=== PATIENT | female | born 2005 | race Caucasian/White ===

== ENCOUNTER 2025-05-07 08:00 | Outpatient (RCR) | payer BC, MEDICAID, OTHER, SELFPAY | END 2025-09-08 23:59 | disposition home or self-care (01) | LOC: CCIC 08:00 | PROVIDERS: PCP Internal Medicine; Referring Provider Internal Medicine; Visit Provider Clinical Nurse Specialist | DX: D80.2 Selective deficiency of immunoglobulin A [IgA] (principal) | CPT/HCPCS: 99211 ==

== ENCOUNTER 2025-07-25 15:24 | Emergency (ER) | payer BC, OTHER, MEDICAID, SELFPAY ==
--- OUTSIDE RECORDS SUMMARY | 2012-07-21 03:00 | XMS_ITS | Continuity of Care Document ---
Author Organization [facility] Address [address] [address] [place] [address] Phone Care Team Providers Care Director Of Partner Marketing Name Role Phone Jeff KHAN, Bill Unavailable Unavaila ble Allergies, Adverse Reactions, Alerts Substance Reaction Status Criticality cefdinir Hives Active No Information WARNIN allergy(ies) could not be collected because the type is not supported. Please contact the source practice for further details. Medications Medication Instructions Dosage Effective Dates (start - stop) Status Comments Keppra 100 mg/mL Oral Soln take 7 milliliter (700MG) by oral route 2 times every day 700 MG - Active TRAZODONE HCL (unknown strength) 10mg/ml-Take 4ml by oral route once daily at HS Not Available - Active melatonin 5 mg/15 mL Oral Liquid Take 6mg by oral route once daily - Active Milk of Magnesia 400 mg/5 mL Oral Susp take 10 - 15 milliliter by oral route every day 10-15 milliliter - Active Vitamin B-6 25 mg tablet Take 1 capsule by oral route once daily - Active cetirizine 1 mg/mL Oral Soln take 2 teaspoon (2MG) by oral route every night 2 MG - Active ferrous sulfate 220 mg (44 mg iron)/5 mL Oral Soln take 6.8 milliliter (299.2MG) by oral route 3 times every day 299.2 MG - Active Procedures Procedure Date Offic Cons New/estab Mod G8447 Advance Directives Directive Yes / No Effective Date File Name Resuscitation Not Answered N/A N/A Life Support Not Answered N/A N/A Intubation Not Answered N/A N/A Antibiotics Not Answered N/A N/A IV Fluid Support Not Answered N/A N/A Tube Feed Not Answered N/A N/A Other Directive N/A N/A WARNING:The information contained in this section is historical and is provided for information only and does not constitute a legal document or any assurance that the information is still accurate. Please verify the information with the sahni of the legal document before using it for clinical purposes. Encounters Encounter Description Practice Location Reason(s) For Visit Diagnoses Date Provider Providers Copied on Encounter Offic Cons New/estab Mod [facility] [address] [address], [place], [place], [id number], [place] tel:[phone] [facility] Constipation (chief complaint) Constipation UnspecifiedFecal Incontinence, Full 2 Jeff jones [address] [facility], [place], [place], [id number] , [place]. tel:[phone] Referring Provider: Jenifer Bone MD, [address] [place], [address]. tel:[phone] Family History Family Member Type Diagnosis Age At Onset First degree family history Problem (finding) No histo ry of Crohn's Maternal grandmother Problem (finding) Maternal history of diabetes mellitus First degree family history Problem (finding) No Family history of No history of Colon Polyps Maternal grandmother Problem (finding) GERD First degree family history Problem (finding) No history of Ulcerative Colitis Maternal grandmother Problem (finding) Thyroid disorde r First degree family history Problem (finding) No history of Colon Rectal Cancer Payers Payer name Insurance type Covered republican ID Authoriza tion(s) No Information Social History Type Description Quantity Date Captured Comments Alcohol Use Details Unknown Caffeine Use Details Unknown Tobacco Use Status No Information Smoking Status No Information Sex Female Chief Complaint And Reason For Visit From encounter dated '07/21/2012 08:00'. Constipation (chief complaint) Reason For Referral Reason For Referral No Information History Of Present Illness Encounter Date Complaint History Of Prese nt Illness No Information Functional Status Date Functional Assessmen t No Information Instructions Date Instruction Additional Infor mation No Information Assessments Type Assessment Date No Information Patient Care Teams Name Effective Dates (start - stop) Status Members No Information
--- OUTSIDE RECORDS SUMMARY | 2012-07-21 03:00 | XMS_ITS | Continuity of Care Document ---
Author Organization [facility] Address [address] [address] [place] [address] Phone Care Team Providers Care Assembler Name Role Phone Jeff KHAN, Bill Unavailable [...] Mod [facility] [address] [address], [place], [place], [id number], [place] tel:[phone] [facility] Constipation (chief complaint) Constipation UnspecifiedFecal Incontinence, Full 2 Jeff jones [address] [facility], [address], [place], [place], [id number] , [place]. tel:[phone] Referring Provider: Jenifer Bone MD, [address] [place], [address]. tel:[phone] Family History Family Member Type Diagnosis Age [...] Cancer Payers Payer name Insurance type Covered constitution party ID Authoriza tion(s) No Information Social History [...]
--- OUTSIDE RECORDS SUMMARY | 2025-03-05 09:20 | XMS_ITS | Continuity of Care Document ---
Author Organization [facility] Address [address] [place] [address] [address] [facility] [address] [place] [address] Phone Care Team Providers Care Bottle Tester Name Role Phone Zay KHAN, Rivera Unavailable Unavailabl e Allergies, Adverse Reactions, Alerts Substance Reaction Status Criticality TAPE, OCCLUSIVE ADHESIVE Active No Information MISCELLANEOUS REAGENTS Active No In formation propofol Active No Information LACTATE Active No Information MISCELLANEOUS REAGENTS Active No In formation vancomycin Active No Information cefdinir Active No Information Medications Medication Instructions Dosage Effective Dates (start - stop) Status Comments Augmentin ES-600 600 mg-42.9 mg/5 mL oral suspension twice a day - Active Healthy Heart Complex 100 mg-800 mcg-200 mcg-100 mg tablet take 250 mg once a day - Active lamotrigine 25 mg tablet take 1 tablet by oral route 2 times every day 25 MG - Active motility pro ORAL CAPSULE 1 capsule daily - Active ortho spore IG ORAL CAPSULE 1 capsule three times daily - Active D-Hist ORAL CAPSULE 2 capsules daily - Act carito Reacted Magnesium Powder 300 ORAL POWDER(EA) 1.5 scoops twice daily - Active Briviact 10 mg/mL oral solution take 15 milliliters by oral route 2 times every day - Active Fintepla 2.2 mg/mL oral solution take 4 mL's twice daily - Active IntraMax 2.0 15 mL ORAL LIQUID twice daily - Active ASEA 60 mL ORAL LIQUID once daily - Active Epidiolex 100 mg/mL oral solution take 6 mL's three times daily - Active norethindrone acetate 5 mg tablet take 0.5 tablet at bedtime - Active xcorpi 200 mg ORAL LIQUID at bedtime - Active Valtoco 10 mg/spray (0.1 mL) nasal spray spray (10MG) by intranasal route into one nostril for seizures greater than 3 minutes. - Active cobalt 20 mg CBD:1 mg THC ORAL LIQUID 2 mL's as needed - Active diazepam 5 mg/5 mL (1 mg/mL) oral solution take 2 mL's prior to exciting events - Active Benadryl Allergy 12.5 mg/5 mL oral liquid take 20 mL's as needed - Active ibuprofen 100 mg/5 mL oral suspension take 20 mL's as needed - Active trazodone 50 mg tablet take 0.5 tablets by oral route every day at bedtime - Active Fish Oil 1,000 mg (120 mg-180 mg) capsule 5 mL's three times daily - Active levetiracetam 100 mg/mL oral solution take 15 mL's (1500 mg) 3 times daily - Active levocarnitine 1 gram/10 mL oral solution Take 15 mL's (1500 mg) 3 times daily - Active riboflavin 5-phosphate sodium (vit B2) (bulk) powder take 36.5 mg once daily - Active trazodone 100 mg tablet take 1 tablet by oral route every day at bedtime - Active Vitamin B-6 25 mg tablet 1 tablet once daily - Active vitamin D3 125 mcg (5,000 unit)-vitamin K2 90 mcg capsule (1 drop 1000 IU Vitamin D-10 mcg K2) take 5 drops daily - Active Procedures Procedure Date Est Pt, Office Visit V Est Pt, Office Visit III Est Pt, Office Visit IV Advance Directives Directive Yes / No Effective Date File Name No Information Encounters Encounter Description Practice Location Reason(s) For Visit Diagnoses Date Provider Providers Copied on Encounter [facility], [address] [place] [address], [id number], [place] tel:[phone] [facility] No Information Zay Stafford. [address] [place] [address], [address] [place] [address], [id number] , [place]. tel:[phone] Est Pt, Office Visit V [facility], [address] [place] [address], [id number], tel:[phone] [facility] Established Pt Visit (chief complaint) Nonfamilial hypogammaglobul inemia 8 4 Karel Núñez. [address], [address], [place], [id number] , [place]. tel: [phone] Est Pt, Office Visit III [facility], [address], [id number], tel:[phone] [facility] Established Pt Visit (chief complaint) Body mass index (BMI) 31.0-31.9, adultAntibody deficiency with near-normal immunoglobulins or with hyperimmunoglob ulinemiaNonfami lial hypogammaglobul inemia 4 aKrel Núñez. [address], [address] [place] [address], [id number] , [place]. 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 [address], [address] [place] [address], [id number] , [place]. tel: [phone] [facility], [address] [place] [address], [id number], [place] tel:[phone] [facility] Established Pt Visit (chief complaint) Body mass index (BMI) 34.0-34.9, adultAntibody deficiency with near-normal immunoglobulins or with hyperimmunoglob ulinemia 3 Karel N[address]ez. [address], [address] [place] [address], [id number] , [place]. 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 [address], [address], [place], [place], [id number] , [place]. tel:[phone] Family History Family Member Type Diagnosis Age At Onset No Information Payers Payer name Insurance type Covered republican ID Authortrino villalobos(s) [employer] [place] [id number] [facility] CI [id number] Ucare Medicaid CI [id number] Social History Type Description Quantity Date Captured Comments Alcohol Use Details Unknown Caffeine Use Details Unknown Tobacco Use Status No Information Smoking Status No Information Sex Female Chief Complaint And Reason For Visit No Information Reason For Referral Reason For Referral No Information Plan Of Treatment Date Type Action Status Goal Lifestyle education regardin g diet completed Goal Lifestyle education regardin g diet completed History Of Present Illness Encounter Date Complaint History Of Prese nt Illness Established Pt Visit Patient is a 18 year old female with a complex health history as noted previously, followed here for history of recurrent respiratory illness and hypogammaglobulinemia. Her last visit was February 2024.She had been on IVIG for many years, primary as an 'iimunomodulatory' therapy with a working diagnosis of autoimmune encephalopathy made at the time. In 2022 we worked on a gradual taper to see how Carmen would do off IVIG. Her last dose was 08/29/2024. Serum IgG 01/27/2024 was 611 mg/dL (ref. 1,590).She had been on Recall Patient was on Gammagard 35 gram monthly through [facility]. We discussed rationale to consider returning to IVIG given low serum IgG and reported increase in respiratory illness. We acknowledged otitis media, URI, etc. can still be multifactorial and IVIG would be only one approach to ongoing multidisciplinary care. However, we discussed her low IgG could be a contributing factor to her onset of recurrent respiratory illness since stopping IVIG. Resuming IVIG would be appropriate in Carmen's case. Dosing at this time would focus on replacement (approximately 400 mg/kg/month).May 2024 laboratory results through [facility]ia De La Gar[facility] ([facility]) document decreased IgG (500 mg/dL range); IgA 26 mg/dL; IgM 35 mg/dLRecall Solumedrol was stopped in November 2019 in exchange for a premed of Solucortef 50mg IVP and pulse doses of oral steroids at 60mg twice weekly.Recall Patient was on Gammagard 35 gram monthly through [facility]. Recall patient being very prone to lupus according to rheumatology reports.The patient's mother reports that the patient is feeling well overall; however, she notes that the patient has experienced five episodes of ear infections in the past six months.The mother also indicates that the patient is currently prescribed lamotrigine for seizure management, with the dosage recently reduced to 25 mg.Lengthy discussion with patient's mother regarding evaluation of the immune system from both a quantitative and qualitative standpoint. Established Pt Visit You are fareed shearer with Wilton Vinson MD via [employer] video conferencing. 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 Her last visit was on 10/28/2023.Recall Solumedrol was stopped in November 2019 in exchange for a premed of Solucortef 50mg IVP and pulse doses of oral steroids at 60mg twice weekly.Recall Patient was on Gammagard 35 gram monthly through [facility]. Recall patient being very prone to lupus according to rheumatology reports.Lab done on 01/27/2024 at [facility] reports an IgG of 611.Patient's mother reports an increase in seizure since for patient since she got off of IVIG. She reports patient having two episode of ear infection where first episode got resolved with the use of amoxicillin but the second infection didn't.She also reports having two episode of seizure each day last week on February 10 and February 11 respectively. There were no sign of illness during and after the seizure. Mother also reports patient not having any ear infection while patient was on IVIG.Patient's most recent seizure was reported to be yesterday. Patient had two episode of seizure with 17 min apart. 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 Her last visit was on 03/21/2023.Recall Solumedrol was stopped in November 2019 in exchange for a premed of Solucortef 50mg IVP and pulse doses of oral steroids at 60mg twice weekly.Recall Patient was on Gammagard 35 gram monthly through [facility]. Lilia reports that patient has been a lot more illness since getting off infusion. Lilia states that patient had multiple cold, one covid infection during her trial off from infusion. Patient's last infusion was reported to be on Aug 30 2023 which was about 20g gammagard. She tolerated the infusion in the past without any adverse reaction. Despite having multiple illness during patient's trial off from infusion, Lilia still reports preferring continuation of trial off from infusion.Lilia also reports patient's last seizure being on sep 12 and the previous seizure being on August 13. Patient had a multidisciplinary visit at [facility] which includes cardiology, psychology, rheumatology, genetic counselor, neurologist. Reviewed documents at the time of the visit.Lilia also report patient being very prone to Lupus according to rheumatology reports. Established Pt Visit Patient pre sents for an office visit today with Kasia Herndon member initiating visit and consent: LCPresent: Janet Morales Valerie - PCAReason for Visit: Follow up, concerns about being oppositional.We reviewed Carmen's history. She has been having seizures every 1?2 weeks which is a change above her baseline over the last year.Carmen has been receiving IVIG fairly consistently since 2012 when the [place] department of neurology had her on this as a trial for herautoimmune encephalopathy. She is presently receiving Gammagard 70 grams every 28 days through [facility].Solumedrol was stopped in November 2019 in exchange for a premed of Solucortef 50mg IVP and pulse doses of oral steroids at 60mgtwice weekly.Symptoms of worsening neurologic symptoms a couple of days prior to her IVIG with symptoms of agitation, decreased appetite, disruptedsleep and increased urination. No significant side effects of the IVIG therapy.She had recent neurology follow-up at [facility]. Visit summaries were reviewed during her visit today. Functional Status Date Functional Assessmen t No Information Instructions Date Instruction Additional Infor lucieion Lifestyle education regarding di et Related to Body mass index [BMI] 31.0-31.9, adult Lifestyle education regarding di et Related to Body mass index [BMI] 34.0-34.9, adult Assessments Type Assessment Date No Information Patient Care Teams Name Effective Dates (start - stop) Status Members No Information
--- OUTSIDE RECORDS SUMMARY | 2025-03-05 09:20 | XMS_ITS | Continuity of Care Document ---
Author Organization [facility] Address [address] [place] [address] [address] [facility] [address] [place] [address] Phone Care Team Providers Care Mini Baccarat Dealer Name Role Phone Zay KHAN, Rivera Unavailable [...] Diagnoses Date Provider Providers Copied on Encounter [facility], [address] [place] [address], [id number], [place] tel:[phone] [facility] No Information Zay Stafford. [address] [place] [address], [address] [place] [address], [id number] , [place]. tel:[phone] Est Pt, Office Visit V [facility], [address] [place] [address], [id number], tel:[phone] [facility] Established Pt Visit (chief complaint) Nonfamilial hypogammaglobul inemia 8 [address] Karel Núñez. [address], [address], [place], [id number] , [place]. tel: [phone] Est Pt, Office Visit III [facility], [address], [id number], tel:[phone] [facility] Established Pt Visit (chief complaint) Body mass index (BMI) 31.0-31.9, adultAntibody deficiency with near-normal immunoglobulins or with hyperimmunoglob ulinemiaNonfami lial hypogammaglobul inemia [address] Karel Núñez. [address], [address] [place] [address], [id number] , [place]. 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 [address], [address] [place] [address], [id number] , [place]. tel: [phone] [facility], [address] [place] [address], [id number], [place] tel:[phone] [facility] Established Pt Visit (chief complaint) Body mass index (BMI) 34.0-34.9, adultAntibody deficiency with near-normal immunoglobulins or with hyperimmunoglob ulinemia 3 Karel Núñez. [address], [address] [place] [address], [id number] , [place]. tel: [phone] [facility], [address] [place] [address], [id number], tel:[phone] [facility] Antibody defic w near-norm immunoglob or w hyperimmunoglob Gen idiopathic epilepsy, not intractable, w/o stat epi 3 Karel Núñez. [address], [address], [place], [place], [id number] , [place]. tel:[phone] Family History Family Member Type Diagnosis Age At Onset No Information Payers Payer name Insurance type Covered libertarian ID Authortrino villalobos(s) [employer] [place] [id number] [facility] CI [id number] Ucare Medicaid CI [id number] Social History Type Description Quantity Date Captured [...] laboratory results through [facility] De La [facility] ([facility]) document decreased IgG (500 mg/dL range); IgA [...] fareed shearer with Wilton Vinson MD via [employer] video conferencing. This visit will be billed [...] to rheumatology reports.Lab done on 01/27/[address] [facility] reports an IgG of 611.Patient's mother [...] 13. Patient had a multidisciplinary visit at [facility] which includes cardiology, psychology, rheumatology, genetic [...] IVIG fairly consistently since 2012 when the [place] department of neurology had her on this [...] IVIG therapy.She had recent neurology follow-up at [facility]. Visit summaries were reviewed during her [...]
[2025-07-25] VITALS (23 sets, daily range): BP systolic 122–134; BP diastolic 78–84; PULSE 60–101; RESP 20; TEMP 36.5–36.8; O2SAT 88–100
--- OUTSIDE RECORDS SUMMARY | 2025-07-25 15:26 | XMS_ITS | Clinical Summary ---
Author Organization [facility] Address [address] [place] [address] Care Team Providers Care Cooler Man Name Role Phone Virgil Flores DO Primary Care Provid er Allergies Active Allergy Reactions Criticality Noted Date Comments Adhesive Rash Medium 05/29/2023 Cefdinir Edema 10/18/2011 Swelling of hands Sunscreen Encephalopathy 07/12/2021 Diethyltoluamide Seizures High 07/12/2021 Lactate *Unknown 03/21/2023 Lactated Ringers *Unknown 12/27/2020 Contraindicated due to mitochondrial disorder Physiological Irrigating Solution Other - Describe In Comment Field Lactated Ringers--WORSENS MITOCHONDRIAL DISEASE Propofol *Unknown - Childhood Rxn 03/23/2022 Under 20 mins is acceptable, per mom's report Vancomycin Other - Describe In Comment Field 06/11/2013 Caused Red Man Syndrome Medications lamoTRIgine (LAMICTAL) 200 mg tablet Take 200 mg AM and PM, 100 mg BID AM and PM, 50 mg PM 0 8 Active medication order composer B6 Complex QD 0 8 Active Magnesium Gluconate powd Mix 300 mg in liquid then take by mouth. Active traZODone (DESYREL) 100 mg tabletIndicatio ns:Sleep disturbance Compound to liquid 10 mg per 1 ml. Dose is 100 mg or 10 ml qhs. 30 Tablet 5 1 Active norethindrone (NORLUTATE) 5 mg tablet Take 2.5 mg by mouth. 1 Active medication order composer Fish oil liq 5-10 cc's depending on energy requirements Intramax MVI 15 cc's CoQ10 liq 50 cc's - all administered at 1130 0 2 Active cannabidioL (Epidiolex) 100 mg/mL soln oral solution 5 mL (500 mg) 3 times/day 0 2 Active cholecalciferol , vitamin D3, 25 mcg/drop ( 1000 unit/drop) drop 5 drops once/day 0 2 Active levOCARNitine, with sucrose, (CARNITOR) 100 mg/mL solution Give 15ml 3 times/day 0 2 Active nebulizer accessories kitIndications: Post-viral cough syndrome For home use. Length of need: 99 Has machine, just needs tubing and mask. 1 Kit 2 Active albuterol (PROVENTIL) 0.083 % neb solutionIndicat ions:Post-viral cough syndrome Inhale 3 mL (2.5 mg) via a nebulizer every 4 hours if needed for Shortness Of Breath or Cough. 90 mL 3 2 Active Fintepla 2.2 mg/mL soln 3 Active InnoSpire Essence FOR HOME USE DIRECTED 2 Active thiamine (VITAMIN B1) 100 mg tablet Take 100 mg by mouth. Active traZODone (DESYREL) 50 mg tablet 0.5 tablet (25 mg) 3 Active nystatin powder (MYCOSTATIN) powderIndicatio ns:Candidal intertrigo Apply 1 Strip topically to affected area(s) three times daily. 60 g 3 Active nystatin (MYCOSTATIN) creamIndication s:Candidal intertrigo Apply topically to affected area(s) two times daily. 30 g 3 Active acetaminophen (TYLENOL) 160 mg/5 mL suspensionIndic ations:History of third molar tooth extraction, unspecified edentulism class Take 31.3 mL (1,001.6 mg) by mouth every 6 hours if needed for Pain. Max acetaminophen dose: 4000mg in 24 hrs. 480 mL 1 3 Active ibuprofen (MOTRIN; ADVIL) 100 mg/5 mL suspensionIndic ations:History of third molar tooth extraction, unspecified edentulism class Take 20 mL (400 mg) by mouth every 6 hours if needed for Pain. 300 mL 1 3 Active ketoconazole 2% shampoo (NIZORAL) 2 % shampooIndicati ons:Yeast infection Shampoo the hair thoroughly each day for 3 days. 120 mL 4 Active omega 0-nfy-ses-fish oil (Fish OiL) 1,600-500-800 mg/5 mL liqd Take 7-10 mL by mouth three times daily. 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 Expect developmental delay and seizures. Determined by exome testing. 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 Has been on ocp. Recommend considering IUD--could be placed under nitrous or procedural sedation as needed. See dictation for further details. 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 Diagnosis and labs per [facility]. Labs are normal with no positive markers. IV methylprednisolone trial in progress. First treatment showed positive response. 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 Easton 07/2021 Elevated antibody (Thyroperoxidase, TPO). normal TSH & T4 Gene mutation 09/20/2015 07/27/2022 Overview (09/20/2015): GABRB2 gene mutation. Expect developmental delay and seizures. Determined by exome testing. Pervasive developmental disorder 08/17/2014 07/27/2022 Sepsis(995.91) 06/11/2013 07/27/2022 Overview (06/11/2013): MSSA sepsis from in dwelling PICC line. 06/02/2013 Recurrent otitis media 07/23/201207/27 Overview (07/23/2012): Now resolved 2011 Anemia, unspecified 07/23/2012 07/27/20 22 Overview (10/21/2012): Iron deficiency Resolved. 10/21/2012 Seizure 11/29/2011 07/14/2021 Overview (03/15/2016): Last February 2016. On medical marijuana Screening for lead exposure 12/26/2010 07/27/2022 Overview (12/26/2010): Lead result <3 on 12/01/08 Incontinence of feces 12/25/20102015 Unspecified urinary incontinence 12/25/2010 12/31/2017 Recurrent sinusitis 05/07/2008 07/27/20 22 Overview (02/26/2014): S/P adenoidectomy and retention cyst removal CT 02/2014 is normal. IUGR (intrauterine growth retardation) 07/14/2021 FTT (failure to thrive) 12/06 Immunizations Immunization Administration Dates Next Due DTaP 02/20/2006, 5,03/27/2005,2004 DTaP-IPV (Kinrix) 11/23/2009 HIB PRP-T (ActHIB,Hiberix) 02/20/2006,03/27/2005 ,01/26/2005 Hepatitis A (Peds) 06/27/2007,06/04/2006 Hepatitis B (Peds) 03/27/2005,01/26/2005, 005 Inactivated Polio Vaccine 08/21/2005,03/27/2005, 01/26/2005 Influenza,LAIV4 Live Intrana chloe (Flumist) 06/30/2009 MMR 11/30/2008,11/27/2005 Pneumococcal conj 7-Valent ( Prevnar 7) 03/27/2005,01/26/2005 Tdap 03/21/2021 Varicella Vaccine 11/30/2008,11/27/2005 Family History Medical History Relation Name Comments Cancer Maternal Grandfather Cancer Maternal Grandmother Diabetes Maternal Grandmother Heart Disease Maternal Grandmother Hypertension Maternal Grandmother Stroke Maternal Grandmother Hypertension Mother Adoptive mother Unknown Mother biological moth er-Bipolar Relation Name Status Comments Father Gilberto Alive Adoptive parent s Maternal Grandfather Maternal Grandmother Mother Alive Adoptive parent s Social History Tobacco Use Types Packs/Day Years Used Date Smoking Tobacco: Never Passive Smoke Exposure: Never Smokeless Tobacco: Never Tobacco Cessation:Counseling Given: Not Answered Alcohol Use Standard Drinks/Week Comments No 0 (1 standard drink = 0.6 oz pur e alcohol) PHQ-2 Answer Date Recorded PHQ-2 TOTAL SCORE 0 07/27/2022 Social Connections Answer Date Recorded Frequency of Communication with Friends and Fami ly Not on file 02/26/2024 Financial Resource Strain Answer Date R ecorded Difficulty of Paying Living Expenses 3 02/25/2023 Difficulty of Paying Living Expenses Not on file 02/25/2023 Food Insecurity Answer Date Recorded Worried About Running Out of Food in the Last Ye ar 1 02/25/2023 Transportation Needs Answer Date Record ed Lack of Transportation (Medical) 1 02/25/2023 Housing Stability Answer Date Recorded Unable to Pay for Housing in the Last Year 1 02/25/2023 Comments No Sex and Gender Information Value Date Recorded Sex Assigned at Not on file 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 Gender Identity Not on file Sexual Orientation Not on file Obstetrics History Para Term AB IAB SAB Ectopic Multiple Livin g Live Births 0 0 0 0 0 0 0 0 0 0 0 Last Filed Vital Signs Vital Sign Reading Time Taken Comments Blood Pressure 120/64 02/23/2024 3:05 PM CDT Pulse 82 02/23/2024 3:05 PM CDT Temperature 36.9 C (98.4 F) 02/23/2024 3:05 PM CDT Respiratory Rate 20 02/23/2024 3:05 PM CDT Oxygen Saturation 98% 02/23/2024 3:05 PM CDT Inhaled Oxygen Concentration - - Weight 89.9 kg (198 lb 1.6 oz) 02/23/2024 3:05 P M CDT Height 169 cm (5' 6.54) 12/30/2023 1:49 PM CDT Body Mass Index - - Plan of Treatment Health Maintenance Due Date Last Done Comments Hepatitis B series for 19+ (4 of 4 - 4-dose series) 05/22/2005 03/27/2005, 01/26/2005, 2004 HIV for age 15-65 2019 HPV series for age 9-45 (1 - 3-dose series) 2019 Hepatitis C screening for age 18-79 2022 Well Child Check for age 3-20 02/26/2024 02/25/2023, 07/27/2022, 11/07/2020, Additional history exists BMI (ht and wt on same day) for age 18+ 12/29/2024 12/30/2023, 02/25/2023, 01/07/2023 COVID-19 vaccine series ( - 2023- season) 2025 Influenza Vaccine (#1) 2025 06/30/2009 Tetanus booster 03/21/2031 03/21/2021 RSV vaccine for adults or (1 - 1-dose 75+ series) 2079 Pneumococcal series for age 6-49 Aged Out 03/27/2005, 01/26/2005 No longer eligibl e based on patient's age to complete this topic Meningococcal series for age 11-21 Aged Out No longer eligible based on patient's age to complete this topic Insurance [facility] Care Teams Cooler Man Relationship Specialty Start Date End Date Virgil Flores DO [address] [place] [address] PCP - General Internal Medicine 09/02/24
--- OUTSIDE RECORDS SUMMARY | 2025-07-25 15:26 | XMS_ITS | Clinical Summary ---
Author Organization [facility] Address [address] [place] [address] Care Team Providers Care Geomorphologist Name Role Phone Tricia Sinha MD Unavailable Unavailable José Manuel Duque MD Unavailable [phone] Juany Bowen Unavailable [phone] Susan Merlos MD Unavailable Esme Munguia GC Unavailable Nery Bartholomew MD Primary Care Provider [phone] Edilma Velasco MD Unavailable [phone] Allergies Active Allergy Reactions Criticality Noted Date Comments Cefdinir Hives 08/26/2012 Cefdinir Other (See Comments) 10/18/2011 Swelling of hands Other Drug Allergy (See Comments) 10/13/2023 Lactated Ringers (Contraindicated due to Mitochondrial Disorder) Propofol 10/13/2023 (Under 20 minutes is acceptable) due to Mitochondrial disease. Vancomycin 07/13/2014 Red man's syndrome Medications LevETIRAcetam (KEPPRA PO)Indications: 1000mg bid Take 700 mg by mouth 2 times daily 7mL twice daily Active TRAZODONE HCLIndications: taking 7.5ml 10 mLs 75mg Activ e Nutritional Supplements (MELATONIN PO) Take 8 mg by mouth At Bedtime Active LamoTRIgine (LAMICTAL PO) Take 260 mg by mouth 2 times daily 350mg bid Active Immune Globulin, Human, (HIZENTRA SC) Inject 5 g Subcutaneous twice a week Taking 65g every 28 days IV infusion Active Multiple Vitamin (MULTIVITAMINS PO) Take by mouth daily Active Riboflavin (VITAMIN B-2) 25 MG TABS Take 25 mg by mouth 2 times daily 50 mg bid Active Pyridoxine HCl (VITAMIN B6 PO) Take 200 mg by mouth 2 times daily Active Coenzyme Q10 (COQ10 PO) Take 200 mg by mouth 3 times daily Active Diazepam (VALIUM PO) Take 1 mg by mouth daily 1 mg twice daily, 0.2mls 10 mg for seizure greater than 3 minutes. Active Dix Gluconate POWD 6 ml tid Activ e clobazam (ONFI) tablet Active medical cannabis oral liquid (Patient's own supply. Not a prescription) (This is NOT a prescription, and does not certify that the patient has a qualifying medical condition for medical cannabis. The purpose of this order is to document that the patient reports taking medical cannabis.) Active cholecalciferol (VITAMIN D3) 5000 UNITS CAPS capsule Take 5,000 Units by mouth daily 5 Active diphenhydrAMINE (BENADRYL) 12.5 MG/5ML liquid Take 12.5 mg by mouth as needed 0 Active Mesick OIL 5 mLs At Bedtime Active norethindrone (MICRONOR) 0.35 MG per tablet Take 1 tablet by mouth daily Active methylPREDNISol one sodium succinate (solu-MEDROL) 250 mg in D5W 100 mL Inject 50 mg/hr into the vein continuous Iv push Active IBUPROFEN PO Take 200 mg by mouth every 6 hours as needed for moderate pain Active saccharomyces boulardii (FLORASTOR) 250 MG capsule Take 250 mg by mouth daily Active Ferrous Sulfate (IRON SUPPLEMENT PO) Take 200 mg by mouth Lactoferrin Active Glycine POWD 300 mg 2 times daily Active MAGNESIUM GLUCONATE PO Take 300 mg by mouth 2 times daily Active fish oil-omega-3 fatty acids 1000 MG capsule Take 2 g by mouth 3 times daily Active ATENOLOL PO Take 10 mg by mouth Active LevETIRAcetam (KEPPRA PO) Take 1,500 mg by mouth Active Active Problems Problem Noted Date Diagnosed Date Poor growth 05/14/2018 Gene mutation 09/20/2015 Overview (05/14/2018): Overview: GABRB2 gene mutation. Expect developmental delay and seizures. Determined by exome testing. 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 Gender Identity Not on file Sexual Orientation Not on file Last Filed Vital Signs Vital Sign Reading Time Taken Comments Blood Pressure 113/74 10/13/2023 6:52 PM PROGRAMMING MANAGER Pulse 96 10/13/2023 6:18 PM PROGRAMMING MANAGER Temperature 36.8 C (98.3 F) 10/13/2023 4:54 PM PROGRAMMING MANAGER Respiratory Rate 16 10/13/2023 4:54 PM PROGRAMMING MANAGER Oxygen Saturation 98% 10/13/2023 6:52 PM PROGRAMMING MANAGER Inhaled Oxygen Concentration - - Weight 88.9 kg (196 lb) 10/13/2023 5:38 PM PROGRAMMING MANAGER Height 167.6 cm (5' 6) 10/13/2023 5:38 PM PROGRAMMING MANAGER Body Mass Index 31.64 10/13/2023 5:38 PM PROGRAMMING MANAGER Plan of Treatment Upcoming Encounters Date Type Department Care Team (Late st Contact Info) Description 08/03/2025 3:00 PM CDT Office Visit [facility] [address] [place] [phone] Lala Pillai MD [address] [place] [id number] Ashleigh Dobbs MD [address] [place] [address] 04/07/2026 12:30 PM CDT Office Visit [facility] [address] [place] [address] Edilma Velasco MD [address] [facility] [address] [place] [address] Health Maintenance Due Date Last Done Comments ANNUAL REVIEW OF HM ORDERS 2004 CHLAMYDIA SCREENING 2004 COVID-19 VACCINE (#1) 2009 HIV SCREENING 2019 HPV VACCINE (1 - 3-dose series) 2019 MENINGITIS B VACCINE (1 of 2 - Standard) 2020 HEPATITIS C SCREENING 2022 PNEUMOCOCCAL VACCINE: PEDIATRICS (0 to 5 YEARS) AND AT-RISK PATIENTS (6 to 49 YEARS) (1 of 2 - PCV) 2023 03/27/2005, 01/26/2005, 01/05/2005 ZOSTER VACCINE (1 of 2) 2023 YEARLY PREVENTIVE VISIT 02/26/2024 02/26/20, 07/27/2022, 11/07/2020 PHQ-2 (once per calendar year) 2024 INFLUENZA VACCINE (#1) 2025 06/30/2009, 2007 ADVANCE CARE PLANNING 10/15/2028 10/15/2023 DTAP/TDAP/TD VACCINE (7 - Td or Tdap) 03/21/2031 03/21/2021, 11/23/2009, 02/20/2006, Additional history exists HEPATITIS B VACCINE Completed 08/21/2005, 03/27/2005, 03/27/2005, Additional history exists MENINGITIS VACCINE Aged Out No longer eligible based on patient's age to complete this topic Insurance [facility] WITH BS BCBS [facility] Advance Directives For more information, please contact: [phone] Documents on File Type Date Recorded Patient Sourcing Internship Expl anation Advance Directives and Living Will 10/15/2023 Janet High (TEMPORARY CO GUARDIAN TO 07-20-2028; MAY ACT INDEPENDENTLY)Gilberto High (TEMPORARY CO GUARDIAN TO 07-20-2028; MAY ACT INDEPENDENTLY) Legal Temporary Guardianship 07-20-2022 to 07-20-2028 Care Teams Geomorphologist Relationship Specialty Start Date End Date Nery Bartholomew MD [address] [address] PCP - General Pediatrics 10/13/23 Tricia Sinha MD Pediatric Neurology 07/13/14 José Manuel Duque MD [facility] [address] [place] [address] Pediatrics 07/13/14 Juany Bowen [facility] [id number] [place] [address] [id number] Specialty Provider Neurology 07/13/14 Susan Merlos MD [address] [id number] Pediatrics 07/07/15 Esme Munguia GC [address] [phone] Genetic Counselor Genetic Oracle Etl Developer 08/26/15 Edilma Velasco MD [address] [id number] Hospitalist Endocrinology, Diabetes, and Metabolism 07/22/25
--- OUTSIDE RECORDS SUMMARY | 2025-07-25 15:26 | XMS_ITS | Encounter Summary ---
[facility] Address [address] [address] Care Team Providers Care Human Services Worker Name Role Phone Virgil Flores DO Primary Care Provider [phone] Encounter Details Date Type Department Care Team (Late st Contact Info) Description 05/28/2016 Notes/Orders [facility] [address] [place] [address] Tricia Sinha MD Generalized-onset seizures (HRC); Mitochondrial complex 3 deficiency (HRC) Social History Tobacco Use Types Packs/Day Years Used Date Smoking Tobacco: Never Comments Unknown Sex and Gender Information Value Date Recorded Sex Assigned at Not on file Legal Sex Female 6:34 AM CDT Gender Identity Not on file Sexual Orientation Not on file documented as of this encounter Plan of Treatment Not on file documented as of this encounter Visit Diagnoses Diagnosis Generalized-onset seizures (HRC) Other convulsions Mitochondrial complex 3 deficiency (HRC) documented in this encounter Care Teams Human Services Worker Relationship Specialty Start Date End Date Virgil Flores DO [address] [place] [address] PCP - General Internal Medicine 06/02/24 documented as of this encounter
--- OUTSIDE RECORDS SUMMARY | 2025-07-25 15:26 | XMS_ITS | Clinical Summary ---
Author Organization [facility] Address [address], [place] [address] Care Team Providers Care Associate Biological Sales Name Role Phone Virgil Flores DO Primary Care Provider [phone] Source Comments You are receiving this document as you are listed as the primary care provider,follow-up provider, or the patient has been referred to you for consultation.This is in compliance with the Medicare andMedicaid EHR Incentive Program,which states Providers who transition their patient to another setting of careor provider of care or refers their patient to another provider of care shouldprovide summary care record for each transition of care or referral. [facility] Allerg[facility] Active Allergy Reactions Criticality Noted Date Comments Cefdinir Rash 10/21/2011 Lactated Ringers Other, see comments High 09/19/2022 Causes buildup of lactic acid Physiolyte 09/02/2019 Propofol Other, see comments High 09/19/2022 Can only have for less than 20 minutes. 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 0 Active Immune Globulin, Human, 1 GM/5ML SOLN Inject subcutaneously. 5 Active SACCHAROMYCES BOULARDII OR Take by mouth. 5 Active Magnesium Gluconate (AKA MAGONATE) 500 (27 MG) MG Take 400 mg by mouth daily (every 24 hours). 6 Active DIAZEpam (AKA DIASTAT) 10 MG gelIndications: MANJU ESTRADA [facility] Oct 27, 2015 9:54 AM Received from: External Pharmacy Indications: PN: MANJU ESTRADA [facility] Oct 27, 2015 9:54 AM Received from: External Pharmacy 3 4 Active TRAZODONE HCL OR Take 7.5 mg by mouth. 2 Active levETIRAcetam (KEPPRA) 100 MG/ML solution Take 8 mL (800 mg) by mouth two times a day. 3 Active Coenzyme Q10 (COQ-10 OR) Take 200 mg by mouth 3 times daily. 4 Active riboflavin (AKA VITAMIN B-2) 25 MG tablet Take 4 Tablets (100 mg) by mouth two times a day. 4 Active pyridoxine (VITAMIN B-6) 50 MG tablet Take 1 Tablet (50 mg) by mouth daily. 4 Active lamoTRIgine (LAMICTAL) 100 MG tablet Take 3.5 Tablets (350 mg) by mouth two times a day. 4 Active ibuprofen (ADVIL) 100 MG/5ML suspension Take by mouth every 6 hours as needed for Pain. 4 Active Multiple Vitamins-Minera ls (MULTIVITAMINS) CHEW Take 1 tablet by mouth daily (every 24 hours). 4 Active ALBUterol 2.5 mg/3 mL, 0.083%, nebulizer solution Inhale 3 mLs by nebulization every 4 hours as needed for Wheezing (cough). (3ml is 1 ampule) 75 mL 1 5 Active drug not in computerIndicat ions:[place] 3cc three times a day. Indications: [place] 3cc Active drug not in computerIndicat ions:[place] 2 cc daily at bedtime. Indications: [place] 2 cc Active LEVOCARNITINE OR 900 mg three times a day. Active MAGNESIUM GLYCINATE PLUS ORIndications:2 2cc 250mg/15cc BID Indications: 22cc 250mg/15cc BID Active Vitamin D-Vitamin K (VITAMIN K2-VITAMIN D3 OR) Active omega-3 fatty acids (MAXEPA,FISHOIL ) 1000 MG capsule Take 2 Capsules (2,000 mg) by mouth three times a day. Active drug not in computerIndicat ions:Mother pH balance 30cc BID Indications: Mother pH balance 30cc BID Active Nystatin 3853646 UNITS Active Norethin-Eth Estrad Triphasic (ORTHO-NOVUM04/12) 0.5/0.75/1-35 MG-MCG tablet Take 1 Tablet by mouth daily. Active Cannabidiol 100 MG/ML SOLNIndications :2ml BID Indications: 2ml BID Active FINTEPLA 2.2 MG/ML SOLN Take 5 mL (11 mg) by mouth two times a day. Active levOCARNitine (CARNITOR) 1 GM/10ML solution 5 Active lamoTRIgine 200 MG Take 1 Tablet (200 mg) by mouth two times a day. 5 Active lamoTRIgine (LAMICTAL) 100 MG Take 1 Tablet (100 mg) by mouth two times a day. 5 Active ketoconazole (NIZORAL) 2 % shampoo Apply topically. 5 Active diazePAM (VALTOCO 10 MG DOSE) 10 MG/0.1ML LIQD spray (10MG) by intranasal route into one nostril for seizures greater than 3 minutes. Active diazePAM (VALTOCO 10 MG DOSE) 10 MG/0.1ML LIQD 0.1 mL (10 mg) by Nasal route every 24 hours as needed. Active gabapentin (NEURONTIN) 250 MG/5ML solution 5 Active naltrexone (REVIA) 50 MG tablet Take 1 Tablet (50 mg) by mouth daily. 5 Active XCOPRI 50 MG TABS Take by mouth. 5 Active XCOPRI 200 MG TABS Take by mouth. 5 Active clindamycin (CLEOCIN T) 1 % gel Apply to chest twice daily x 14 days 60 g 11 5 Active ketoconazole (NIZORAL) 2 % cream Apply topically every 24 hours as needed. 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 10/21/2012 Astigmatism 09/10/2011 Overview (05/06/2025): Problem list name updated by automated process. Provider to review Encounters Date Type Department Care Team Description 05/06/2025 1:40 PM CDT Office Visit [facility] [address] [place] [address] Wilton Crump, DRIVER LICENSE EXAMINER, PRODUCTION SUPERVISOR Dermatitis; Folliculitis from Last 3 Months Immunizations Immunization Administration Dates Next Due DTaP-IPV (Kinrix, 4-6 yrs) 11/23/2009 Influenza LAIV3 2-49 years (Flumist) 06/30/2009 MMR 11/30/2008 Tdap 03/21/2021 Varicella 11/30/2008 Social History Tobacco Use Types Packs/Day Years Used Date Smoking Tobacco: Never Smokeless Tobacco: Never Tobacco Cessation:Counseling Given: Not Answered Comments No Sex and Gender Information Value Date Recorded Sex Assigned at Not on file Legal Sex Female 6:34 AM CDT Gender Identity Not on file Sexual Orientation Not on file Last Filed Vital Signs Vital Sign Reading Time Taken Comments Blood Pressure 133/91 05/06/2025 1:40 PM CDT Pulse 60 05/06/2025 1:40 PM CDT Temperature 36.4 C (97.5 F) 05/06/2025 1:40 PM CDT Respiratory Rate 20 05/06/2025 1:40 PM CDT Oxygen Saturation 100% 05/06/2025 1:40 PM CDT Inhaled Oxygen Concentration - - Weight 88 kg (194 lb) 06/18/2024 1:44 PM CDT Height 166.4 cm (5' 5.5) 06/18/2024 1:44 PM CDT Body Mass Index 31.79 06/18/2024 1:44 PM CDT Plan of Treatment Health Maintenance Due Date Last Done Comments Chlamydia 2004 Hep C Screening (Preventive Services) 2004 MenB Immunization Discussion 2004 HPV Vaccine (1 - 3-dose series) 2019 HIV Screening (Preventive Services) 2020 Adult Preventive Visit 2022 HepB Vaccine (1) 2023 COVID-19 Vaccine ( season) 2025 Influenza Vaccine (#1) 2025 9, 06/30/2009, 11/20/2007 DTaP/Tdap/Td Vaccine (7 - Tdap) 03/21/2031 03/21/2021, 11/23/2009, 02/20/2006, Additional history exists Zoster/Shingles Vaccine (1 of 2) 2054 Pneumococcal Vaccine Aged Out 03/27/2005, 01/26/2005, 01/05/2005 No longer eligible based on patient's age to complete this topic Hib Vaccine Completed 02/20/2006, 03/08, 01/26/2005 HepA Vaccine Completed 06/27/2007, 06/04/2006 Varicella Vaccine Completed 11/30/2008, , 11/27/2005, Additional history exists IPV (Polio) Vaccine Completed 11/23/2009, 08/21/2005, 03/27/2005, Additional history exists MCV4 Vaccine Aged Out No longer eligi ble based on patient's age to complete this topic Insurance [place] [facility] [address] [id number] [address] [id number] [facility] [id number] Care Teams Associate Biological Sales Relationship Specialty Start Date End Date Virgil Flores DO [address] [place] [address] PCP - General Internal Medicine 06/02/24
--- OUTSIDE RECORDS SUMMARY | 2025-07-25 15:26 | XMS_ITS | Patient Health Record ---
Author Organization [facility] Address [address] [address] Care Team Providers Care Motor Coach Tour Operator Name Role Phone Jenifer Bone MD Primary Care Provider Allergies Allergen (clinical drug ingredient) Drug/Non Drug Allergy documented on EMR Reaction Allergy Type Onset Date Status cefdinir Cefdinir Hives Drug Allergy Active Medications Medication SIG (Take, Route, Frequency, Duration) Notes Start Date End Date Status ZyrTEC Childrens Allergy 1 MG/ML Syrup 5 ml as needed Orally Once a day; Duration: 30 day(s) Active Milk of Magnesia 7.75 % Suspension 5 ml as needed Orally Four times a day Active Amoxicillin Active Iron 28 MG Tablet 1 tablet Orally Once a day; Duration: 30 day(s) Active Melatonin 3 MG Tablet 1 tablet at bedtim e as needed with food Orally Once a day; Duration: 30 day(s) Active traZODone HCl 50 MG Tablet 1 tablet at b edtime Orally Once a day; Duration: 30 day(s) Active Keppra 500 MG Tablet 1 tablet Orally haile ry 12 hrs; Duration: 30 day(s) Active Social History Social History Additional Details Category Social Info Options Details PSA Social History Child Lives At: Home Child Lives With: Mother and Fat her Day Care Yes Siblings Yes: 1 Alcohol/Drugs? No Activities / Interests? reading, horse back riding, playing outside Employment No Problems Problem Type SNOMED Code ICD Code Onset Dates Problem Status W/U Status Risk Notes Problem Constipation (65654528) Constipation (564.00) Active confirmed Problem Neurogenic bladder (761805477) Neurogenic bladder (596.54) Active confirmed Problem Incontinence (97071395) Incontinence (788.30) Active confirmed Problem Cerebral palsy (806049729) Cerebral palsy (343.9) Active confirmed Problem Incontinence of feces (46536439) Incontinence of bowel (787.60) Active confirmed Plan Of Treatment No Information Insurance Providers Payer Name Payer Address Payer Phone Subscriber Number Group Number Insured Name Patient Relationship to Insured Coverage Start Date Coverage End Date [facility] use [employer] [facility] [address] [place] [phone] [id number] Gilberto Hwang Child - Insured has Financial Responsibility Medical (General) History Medical History History ICD Code Eyes: Yes Neurologic: CP, global developomental de lays, seizures Endocrine: No Pulmonary: No Cardiac: No Gastrointestinal: Constipation Genitourinary:Urinary incontinence Infections: No Problems (for child) during :: birthmother with possible drug & alcohol use, used tobacco Baby Born at: 39-40 weeks Weight: 5#11oz Problems at : tight nuc al cord & body x2, weight loss in last 4 weeks of pregn. Surgical History Surgery Date(Month/Year) Strabismus 12/2005 Strabismus 03/2007 tonsillectomy and adenoidectomy & cyst d rain 05/2009 Hospitalization History Reason Date(Month/Year) 1 week for possible seizure activity; di agnosis reflux 02/2005 Ataxia and possible seizures 01/2007 Video EEG 09/2010
--- OUTSIDE RECORDS SUMMARY | 2025-07-25 16:25 | XMS_ITS | CCD ---
Author Organization Unknown Care Team Providers Care Derrick Boat Captain Name Role Phone Physical Therapy Assistant Instructor, [place] Primary Care Provider Unava ilable Unavailable Chronic Care Management Unavaila ble Summary Purpose DataExchange Insurance Providers Payer name Policy type / Coverage type Covered libertarian ID Effective Begin Date Effective End Date [facility] Commercial Insurance [id number] Unknown Unkn own Family History Family History data not found Medication Administered No Medication Administered data Medical Equipment No Medical Equipment data Assessments No Assessment data Reason For Visit No Reason For Visit data Review of Systems No Review of Systems data Physical Exam No Physical Exam data History of Present Illness No History of Present Illness data Advance Directives No Advance Directive data
[2025-07-25 16:34] LABS: Hematocrit* 43.5 % (33.0-51.0); Hemoglobin* 15.0 gm/dL (12.0-16.0); Immature Granulocytes Abs Auto 0.01 K/uL (0.00-0.30); Immature Granulocytes Pct Auto 0.1 %; Mean Corpuscular HGB Conc 35 gm/dL (32-36); Mean Corpuscular Hemoglobin 31 pg (26-34); Mean Corpuscular Volume 91 fL (80-100); RDW Coefficient of Variation % 11.7 % (11.5-15.5); Red Blood Count* 4.77 m/uL (4.00-5.20); White Blood Count* 8.83 K/uL (4.50-11.00)
[2025-07-25] MEDS: ONDANSETRON 2 MG/ML inj 4 MG IVP (16:35)
[2025-07-25 16:38] LABS: Lactate* 17.0 mmol/L (0.5-1.9)
--- NOTE | 2025-07-25 16:39 | ED.SEIZURE ---
HPI - Seizure General Chief Complaint: Seizure Stated Complaint: seizure Time Seen by Provider: 07/25/25 15:57 Source: patient, family, RN notes reviewed and old records reviewed Mode of arrival: wheelchair Limitations: no limitations History of Present Illness HPI Narrative: Patient is a 19-year-old female with a complex history of mitochondrial deficiency, seizures, autoimmune encephalopathy, autism, presents with her mother in her caregiver, with a history of nausea vomiting since 6:00 a.m. this morning she has vomited in number amount of times, now is just retching. Also has had 2 loose stools associated with this. Unable to keep her seizure medications down and has had a least 2 seizures today, her seizure pattern is both grand mal and complex partial. She is followed by [place] [facility] for this. She recently had blood test at [facility], there her gabapentin and also Lamictal were low. She has not had a fever associated with this she has been urinating she has not had been able to keep anything down today. They did try some oral Zofran which she vomited up immediately earlier today. She has not had no rashes associated with this no falls or injury, she becomes photophobic when she is sick, and a little bit more with they describe is out of it. She is fully immunized, allergies are noted. She has seizures quite often. Earlier in the week. MD complaint: seizure Onset (ago): hour(s) Description of Episode: tonic-clonic movement and post-event confusion -: second(s) Witnessed: Yes - by Bystander Trauma: No Seizure History: Yes Place: home Possible Precipitating Event: other (Nausea vomiting, diarrhea) Associated symptoms: loss of appetite Treatments prior to arrival: none Related Data Home Medications ?Medication ?Instructions ?Recorded ?Confirmed lamotrigine 100 mg tablet 100 mg PO DAILY 02/18/23 07/25/25 (Lamictal) lamotrigine 200 mg tablet 200 mg PO BID 02/18/23 07/25/25 (Lamictal) norethindrone (contraceptive) 0.35 2.25 mg PO DAILY 02/18/23 02/18/23 mg tablet trazodone 100 mg tablet 125 mg PO QHS PRN 02/18/23 02/18/23 D-Hist D 07/25/25 Epidiolex 07/25/25 Fish Oil 07/25/25 Flonase 07/25/25 PureVita Vitamin B6 07/25/25 Xcopri 07/25/25 calcium 26-magnesium 15-zinc 07/25/25 gabapentin 07/25/25 levocarnitine 07/25/25 riboflavin (vitamin B2) 07/25/25 Allergies Allergy/AdvReac Type Severity Reaction Status Date / Time cefdinir Allergy Unknown Verified 02/18/23 16:29 propofol Allergy Unknown Verified 02/18/23 16:29 Lactated Ringers Allergy Unknown Unknown Uncoded 02/18/23 16:29 Review of Systems Status of ROS: Reports: 10 or more systems reviewed and unremarkable except as noted in History and below [facility] Social History Smoking Status: Never smoker Do you use any of these nicotine containing products: None How often do you have six or more drinks on one occasion: Never AUDIT-C Alcohol total score: 0 Non-prescribed substance use: denies use Exam Narrative: Exam Narrative: Patient is seen in room 3 with her mother and her caregiver, she is moving around, did retch a few times on the room she is obviously photophobic, wearing glasses. He is nonverbal to this examiner. She is however follow commands somewhat I would describe in that she listens to her caregiver is but does not listen to this examiner. Her pupils are equal reactive, but she looks up when I look in there. Her TMs appear normal bilaterally her oropharynx is well hydrated with a little bit of redness. No tonsillar swelling, or exudates are noted, mouth opening is normal there is no lymphadenopathy anterior posterior chains, she does not have meningismus. No evidence of trauma or the head or neck region, her chest is good air entry from the cooperation I have seen. No clicks murmurs or gallops S1-S2 are normal. Is no evidence of any rash over the chest her abdomen is soft, somewhat doughy, definitely no peritoneal signs, he I do not see any grimacing when I press on there. Her bowel sounds are pretty quiet however. There is no CVA tenderness bilaterally, her door the extremities are normal, she has no evidence of any rashes on her hands or feet. Or her legs. Or back. Const: Vital Signs, click to edit/add: Vital Signs - 24 hr 07/25/25 15:27 07/25/25 16:52 07/25/25 17:00 Temperature 98.2 F Pulse Rate 70 82 Pulse Rate [Pulse Oximeter] 85 Respiratory Rate 20 Blood Pressure Blood Pressure [Ri ght Upper Arm] 122/78 Pulse Oximetry 96 88 97 Oxygen Delivery Me thod Room Air 07/25/25 17:05 07/25/25 17:15 07/25/25 17:30 Temperature Pulse Rate 77 60 90 Pulse Rate [Pulse Oximeter] Respiratory Rate Blood Pressure Blood Pressure [Ri ght Upper Arm] Pulse Oximetry 97 96 97 Oxygen Delivery Me thod 07/25/25 17:31 07/25/25 17:45 07/25/25 18:03 Temperature Pulse Rate 83 77 93 Pulse Rate [Pulse Oximeter] Respiratory Rate Blood Pressure 125/83 Blood Pressure [Ri ght Upper Arm] Pulse Oximetry 100 94 96 Oxygen Delivery Me thod 07/25/25 18:15 07/25/25 18:30 07/25/25 18:45 Temperature Pulse Rate 85 77 97 Pulse Rate [Pulse Oximeter] Respiratory Rate Blood Pressure Blood Pressure [Ri ght Upper Arm] Pulse Oximetry 97 97 98 Oxygen Delivery Me thod 07/25/25 19:00 07/25/25 19:15 07/25/25 19:30 Temperature Pulse Rate 84 88 69 Pulse Rate [Pulse Oximeter] Respiratory Rate Blood Pressure Blood Pressure [Ri ght Upper Arm] Pulse Oximetry 94 91 94 Oxygen Delivery Me thod 07/25/25 19:31 07/25/25 20:24 07/25/25 20:30 Temperature 97.7 F Pulse Rate 74 83 74 Pulse Rate [Pulse Oximeter] Respiratory Rate Blood Pressure 123/84 Blood Pressure [Ri ght Upper Arm] Pulse Oximetry 94 98 96 Oxygen Delivery Me thod 07/25/25 20:45 07/25/25 21:00 07/25/25 21:15 Temperature Pulse Rate 85 86 84 Pulse Rate [Pulse Oximeter] Respiratory Rate Blood Pressure Blood Pressure [Ri ght Upper Arm] Pulse Oximetry 99 97 94 Oxygen Delivery Me thod 07/25/25 21:30 07/25/25 21:34 Temperature Pulse Rate 86 101 H Pulse Rate [Pulse Oximeter] Respiratory Rate Blood Pressure 134/83 Blood Pressure [Ri ght Upper Arm] Pulse Oximetry 95 95 Oxygen Delivery Me thod Documenting provider has reviewed patient's vital signs: yes Course Course ED Course: Patient is requesting to go home, I do believe this is reasonable she took her home seizure medications without vomiting, she is looking a lot better, she is back to her normal self according to the family Vital Signs Vital signs: Initial Vital Signs Temperature 98.2 F 07/25/25 15:27 Temperature Source Temporal Artery Scan 07/25/25 15:27 Pulse Rate 85 07/25/25 15:27 Respiratory Rate 20 07/25/25 15:27 Blood Pressure 122/78 07/25/25 15:27 Blood Pressure Mean 92 07/25/25 15:27 Blood Pressure Position Supine 07/25/25 15:27 Pulse Oximetry 96 07/25/25 15:27 Oxygen Delivery Method Room Air 07/25/25 15:27 Vital Signs Temperature 98.2 F 07/25/25 15:27 Pulse Rate 85 07/25/25 15:27 Respiratory Rate 20 07/25/25 15:27 Blood Pressure 122/78 07/25/25 15:27 Pulse Oximetry 96 07/25/25 15:27 Oxygen Delivery Method Room Air 07/25/25 15:27 Temperature 97.7 F 07/25/25 19:31 Pulse Rate 101 H 07/25/25 21:34 Respiratory Rate 20 07/25/25 15:27 Blood Pressure 134/83 07/25/25 21:34 Pulse Oximetry 95 07/25/25 21:34 Oxygen Delivery Method Room Air 07/25/25 15:27 Medications Administered Medications: Discontinued Medications Generic Name Dose Route Start Last Admin Trade Name Freq PRN Reason Stop Dose Admin Sodium Chloride 1,000 mls @ 1,000 mls/hr 07/25/25 16:30 07/25/25 17:46 0.9 % Sodium Chloride 1000 Ml IV 07/25/25 17:29 Infused .Q1H ARTHUR Infusion Sodium Chloride 1,000 mls @ 1,000 mls/hr 07/25/25 17:00 07/25/25 19:35 0.9 % Sodium Chloride 1000 Ml IV 07/25/25 17:59 Infused .Q1H ARTHUR Infusion Sodium Chloride 500 mls @ 500 mls/hr 07/25/25 19:22 07/25/25 20:10 0.9 % Sodium Chloride 500 Ml IV 07/25/25 20:21 Infused .Q1H ARTHUR Infusion Lorazepam 0.5 mg 07/25/25 16:18 07/25/25 16:33 Lorazepam 2 Mg/Ml Inj IVP 07/25/25 16:19 0.5 mg ONCE ONE Administration Lorazepam 0.5 mg 07/25/25 20:04 07/25/25 20:21 Lorazepam 2 Mg/Ml Inj IVP 07/25/25 20:05 0.5 mg ONCE ONE Administration Ondansetron HCl 4 mg 07/25/25 16:17 07/25/25 16:35 Ondansetron 2 Mg/Ml Inj IVP 07/25/25 16:18 4 mg ONCE ONE Administration Ondansetron HCl 2 mg 07/25/25 20:04 07/25/25 20:22 Ondansetron 2 Mg/Ml Inj IVP 07/25/25 20:05 2 mg ONCE ONE Administration MDM - Seizure MDM Narrative Medical decision making narrative: Differential diagnosis includes but is not limited to viral gastroenteritis, drug food poisoning, pyloric stenosis, gastritis, pancreatitis, hepatitis, cholecystitis, appendicitis, bowel obstruction, hyperemesis, cyclic vomiting syndrome, bulimia nervosa, migraine headache, motion sickness and medication side effect. These include the life threatening complications of appendicitis, drug food poisoning and bowel obstruction. Differential diagnosis include but not limited to epilepsy, drug toxin ingestion, blood sugar abnormalities, cancer, syncope, and electrolyte imbalances. This included life-threatening complications of drug toxin ingestion, cancer, and trauma head injury. Differential Diagnosis Differential diagnosis: Likely focal seizure, generalized seizure and epileptic seizure Medical Records Attestation: I reviewed the patient's medical records. Medical records narrative: I will review the patient's medical records, as she can not receive certain medication. We will go ahead and give her L fluid do some labs, I will give her little bit of lorazepam, along with some Zofran. Lab Data Attestation: I reviewed the patient's lab results. Labs: Lab Results 07/25/25 07/25/25 07/25/25 Range/Units 15:30 17:30 19: WBC 8.83 (4.50-11.00) K/uL RBC 4.77 (4.00-5.20) m/uL Hgb 15.0 (12.0-16.0) gm/dL Hct 43.5 (33.0-51.0) % MCV 91 (80-100) fL MCH 31 (26-34) pg MCHC 35 (32-36) gm/dL RDW Coeff of Cm 11.7 (11.5-15.5) % Plt Count 319 (140-440) K/uL Neut % (Auto) 79.6 H (42.0-72.0) % Lymph % (Auto) 16.1 L (20-44) % [place] % (Auto) 4.0 (0.0-11.0) % Eos % (Auto) 0.0 (0.0-7.0) % Baso % (Auto) 0.2 (0.0-3.0) % Neut # (Auto) 7.00 (1.7-7.0) K/uL Lymph # (Auto) 1.40 (0.90-2.90) K/uL [place] # (Auto) 0.40 (0.00-0.90) K/UL Eos # (Auto) 0.00 (0.00-0.50) K/uL Baso # (Auto) 0.02 (0.00-0.30) K/uL Abs Immat Gran (auto) 0.01 (0.00-0.30) K/uL Imm/Tot Granulo (auto) 0.1 % Sodium 138 (135-149) mmol/L Potassium 3.4 L (3.6-5.1) mmol/L Chloride 101 (96-114) mmol/L Carbon Dioxide 9 L* (20-32) mmol/L Anion Gap 28 H (7-15) mEq/L BUN 7 (5-24) mg/dL Creatinine 0.8 (0.5-1.5) mg/dL Estimated GFR 108 ml/min Glucose 135 H (60-115) mg/dL Lactate 17.0 H* 0.7 (0.5-1.9) mmol/L Calcium 10.0 (8.4-10.6) mg/dL Total Bilirubin 0.7 (0.1-1.5) mg/dL Direct Bilirubin 0.4 (0.0-0.5) mg/dL AST 65 H (12-35) U/L ALT 60 H (4-35) U/L Alkaline Phosphatase 95 (40-150) U/L Total Protein 10.1 H (6.0-8.3) g/dL Albumin 5.1 H (3.3-5.0) g/dL Procalcitonin < 0.03 L (<0.50) ng/mL Urine Color (Yellow) Urine Appearance (Clear) Urine pH (5.0-8.5) Ur Specific [place] (1.000-1.030) Urine Protein (Negative) Urine Glucose (UA) (Negative) Urine Ketones (Negative) Urine Blood (Negative) Urine Nitrite (Negative) Urine Bilirubin (Negative) Urine Urobilinogen (0.2-1.0) Ur Leukocyte Esterase (Negative) Urine RBC (0-2) Urine WBC (0-5) Ur Squamous Epith Cells (None-Few) Amorphous Sediment (None) Other Sediment (None) Urine Bacteria (None) Fine Granular Casts (None) SARS-CoV-2 (PCR) Negative SARS-CoV-2 (Negative) Influenza Type A (PCR) Negative PCR FLU A (Negative) Influenza Type B (PCR) Negative PCR FLU B (Negative) RSV (PCR) Negative PCR RSV (Negative) 07/25/25 Range/Units 19:50 WBC (4.50-11.00) K/uL RBC (4.00-5.20) m/uL Hgb (12.0-16.0) gm/dL Hct (33.0-51.0) % MCV (80-100) fL MCH (26-34) pg MCHC (32-36) gm/dL RDW Coeff of Cm (11.5-15.5) % Plt Count (140-440) K/uL Neut % (Auto) (42.0-72.0) % Lymph % (Auto) (20-44) % [place] % (Auto) (0.0-11.0) % Eos % (Auto) (0.0-7.0) % Baso % (Auto) (0.0-3.0) % Neut # (Auto) (1.7-7.0) K/uL Lymph # (Auto) (0.90-2.90) K/uL [place] # (Auto) (0.00-0.90) K/UL Eos # (Auto) (0.00-0.50) K/uL Baso # (Auto) (0.00-0.30) K/uL Abs Immat Gran (auto) (0.00-0.30) K/uL Imm/Tot Granulo (auto) % Sodium (135-149) mmol/L Potassium (3.6-5.1) mmol/L Chloride (96-114) mmol/L Carbon Dioxide (20-32) mmol/L Anion Gap (7-15) mEq/L BUN (5-24) mg/dL Creatinine (0.5-1.5) mg/dL Estimated GFR ml/min Glucose (60-115) mg/dL Lactate (0.5-1.9) mmol/L Calcium (8.4-10.6) mg/dL Total Bilirubin (0.1-1.5) mg/dL Direct Bilirubin (0.0-0.5) mg/dL AST (12-35) U/L ALT (4-35) U/L Alkaline Phosphatase (40-150) U/L Total Protein (6.0-8.3) g/dL Albumin (3.3-5.0) g/dL Procalcitonin (<0.50) ng/mL Urine Color Yellow (Yellow) Urine Appearance Clear (Clear) Urine pH 8.5 (5.0-8.5) Ur Specific [place] 1.020 (1.000-1.030) Urine Protein 2+ A (Negative) Urine Glucose (UA) Negative (Negative) Urine Ketones 1+ A (Negative) Urine Blood Trace-intact A (Negative) Urine Nitrite Negative (Negative) Urine Bilirubin Negative (Negative) Urine Urobilinogen 0.2 (0.2-1.0) Ur Leukocyte Esterase Negative (Negative) Urine RBC 0-2 (0-2) Urine WBC 0-2 (0-5) Ur Squamous Epith Cells Moderate A (None-Few) Amorphous Sediment Few A (None) Other Sediment Few A (None) Urine Bacteria Moderate A (None) Fine Granular Casts Few A (None) SARS-CoV-2 (PCR) (Negative) Influenza Type A (PCR) (Negative) Influenza Type B (PCR) (Negative) RSV (PCR) (Negative) Discharge Plan Discharge Clinical Impression: Vomiting, Epileptic seizure, Acute dehydration Patient Disposition: Home w/ Parent or Adult Condition: Improved Instructions: Liquids and Hydration for Athletes (ED) Additional Instructions: Home rest continue medications, for vomiting comes back, then I would suggest returning here, that she clearly is a lot better, and when she came in. Did find any focus of infection so I do not think there is any infection but will grow, the cultures and see Activity Level: Light activity Discharge Diet: Clear Liquid Prescriptions: No Action lamotrigine [Lamictal] 200 mg tablet 200 mg PO BID lamotrigine [Lamictal] 100 mg tablet 100 mg PO DAILY trazodone 100 mg tablet 125 mg PO QHS PRN norethindrone (contraceptive) 0.35 mg tablet 2.25 mg PO DAILY Xcopri Rx Instructions: 300mg levocarnitine Epidiolex gabapentin Rx Instructions: 12 ml riboflavin (vitamin B2) PureVita Vitamin B6 Flonase Fish Oil calcium 26-magnesium 15-zinc D-Hist D Follow Up/Referrals: Virgil Flores DO [Primary Care Provider, Internal Medicine] Stand Alone Forms: MyHealth Info Instructions
[2025-07-25 16:46] LABS: Lymphocytes Absolute Auto 1.40 K/uL (0.90-2.90)
[2025-07-25 16:47] LABS: Slide Review Reflex No
[2025-07-25 17:00] LABS: Albumin* 5.1 g/dL (3.3-5.0); Chloride* 101 mmol/L (96-114); Sodium* 138 mmol/L (135-149)
[2025-07-25 17:01] LABS: Potassium* 3.4 mmol/L (3.6-5.1)
[2025-07-25 17:03] LABS: Blood Urea Nitrogen* 7 mg/dL (5-24); Creatinine* 0.8 mg/dL (0.5-1.5); Estimated Glomerular Filt Rate 108 ml/min
[2025-07-25 17:04] LABS: Alanine Aminotransferase* 60 U/L (4-35); Alkaline Phosphatase* 95 U/L (40-150); Aspartate Amino Transferase* 65 U/L (12-35); Bilirubin Direct* 0.4 mg/dL (0.0-0.5); Bilirubin Total* 0.7 mg/dL (0.1-1.5); Calcium* 10.0 mg/dL (8.4-10.6); Glucose* 135 mg/dL (60-115); Total Protein* 10.1 g/dL (6.0-8.3)
[2025-07-25 17:18] LABS: Anion Gap 28 mEq/L (7-15)
[2025-07-25 17:32] LABS: Procalcitonin* < 0.03 ng/mL (<0.50)
--- OUTSIDE RECORDS SUMMARY | 2025-07-25 17:32 | XMS_ITS | CCD ---
Author Organization Unknown Care Team Providers Care Hammer Heater Name Role Phone [place], [place] Primary Care Provider Unava ilable Unavailable Chronic Care Management Unavaila ble Summary Purpose [employer] Insurance Providers Payer name Policy type / Coverage type Covered republican ID Effective Begin Date Effective End Date [facility] Commercial Insurance [id number] Unknown Unkn own Family History Family History [...]
[2025-07-25 17:34] LABS: Carbon Dioxide* 9 mmol/L (20-32)
[2025-07-25 18:15] LABS: Appearance Urine Clear (Clear)
[2025-07-25 18:27] LABS: Other Sediment Urine Few
[2025-07-25 18:37] LABS: PCR FLU A Negative PCR FLU A (Negative); PCR FLU B Negative PCR FLU B (Negative); PCR RSV Negative PCR RSV (Negative); SARS PCR* Negative SARS-CoV-2 (Negative)
[2025-07-25 19:33] LABS: Lactate* 0.7 mmol/L (0.5-1.9)
[2025-07-25] MEDS: 0.9 % SODIUM CHLORIDE 500 ML 500 ML IV (19:34)
[2025-07-25] MEDS: ONDANSETRON 2 MG/ML inj IVP (20:22)
--- NOTE | 2025-07-25 21:43 | PC.NURSE ---
mother and caregiver attempting to give home seizure meds
== END 2025-07-25 23:05 | disposition home or self-care (01) ==
PROVIDERS: Emergency Provider Family Medicine; PCP Internal Medicine
DX: R11.10 Vomiting, unspecified (principal); G40.909 Epilepsy, unspecified, not intractable, without status epilepticus; E86.0 Dehydration
CPT/HCPCS: 36415; 80048; 80076; 81001; 82947; 83605; 84145; 85025; 87040; 87086; 87631; 94761; 96374; 96375; 96376; 99284; 99285; J2060; J2405; J7030